=== PATIENT | male | born 1960 | race Caucasian/White ===

== ENCOUNTER 2017-12-01 02:40 | Observation (INO) | payer OTHER ==
[2017-12-01] VITALS (7 sets, daily range): BP systolic 125–140; BP diastolic 64–97; PULSE 54–68; RESP 16–24; TEMP 97.9–98; O2SAT 93–97
[~2017-12-01 02:40] MED LIST: ACYC200O PO; ASPI81TA82 PO; POLY10O RIGHT EYE; TAMS0.4C4
[2017-12-01] MEDS ORDERED: ACETAMINOPHEN 500 MG CPLT PO PRN (04:00)
[2017-12-01] MEDS ORDERED: ONDANSETRON HCL 4 MG/2 ML VIAL IV PUSH PRN (04:00)
[2017-12-01 04:29] LABS: TROPONIN I LESS THAN 0.02 NG/ML (0.02-0.05)
[2017-12-01] MEDS ORDERED: ATROPINE/SCOPOLAM/HYOSCYAM/PB ELIXIR 10 ML CUP PO ONE (08:15)
[2017-12-01] MEDS ORDERED: ALUMINUM/MAGNESIUM/SIMETH 30 ML CUP PO ONE (08:15)
[2017-12-01] MEDS ORDERED: LIDOCAINE VISCOUS 2% SOLN 15 ML UDC PO ONE (08:15)
[2017-12-01] MEDS ORDERED: LISINOPRIL 10 MG TAB PO SCH (09:00)
--- NOTE | 2017-12-01 10:11 | HHI.HP ---
HPI Primary Care Physician No Primary Care Physician Chief Complaint Chest pain History of Present Illness This is a 57-year-old male with history of hypertension that has not taken medications for some time with the complaint of chest discomfort. He states that he had flulike symptoms last week. Over that has since resolved. Then yesterday he developed a" upper abdominal pain." States that he took a Rolaids without improvement. States the discomfort then radiated up into his chest and it is still there. He decided to seek treatment in the [facility], he was transported to the chest pain center for further evaluation. Found nothing to worsen or improve his symptoms. Denies associated shortness of breath, nausea, or diaphoresis. States he has had a cardiac workup in the past. States he had a normal stress test about a year and half ago. 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 Review of Systems General: Patient had a recent flulike symptoms a week ago. States those symptoms have since resolved. Denies recent travel. HEENT: Patient denies headache, sore throat, difficulty swallowing. Cardiovascular: Has the chest discomfort as mentioned above. Denies sensation of heart beating rapidly or irregularly. No syncope. Denies diaphoresis. Respiratory: Denies shortness of breath or inspirational chest discomfort. Denies coughing wheezing or hemoptysis. GI: Points to epigastric region indicate where the discomfort began. Patient denies nausea, vomiting, diarrhea, bloody stools. Musculoskeletal: Patient denies joint pain or edema. Denies calf pain or edema. Neurovascular: Patient denies numbness, tingling, weakness in extremities. Denies headache. Endocrine: Denies polyuria and polydipsia. Hematologic: Denies easy bruising. Skin: Denies rash or itching. Past Family Social History Allergies: Coded Allergies: No Known Allergies (Verified Allergy, Unknown, 11/30/17) Uncoded Allergies: ALL NARCOTICS (Adverse Reaction, Intermediate, 11/30/17) Past Medical History Hypertension. Denies hyperlipidemia, diabetes, and known CAD. Past Surgical History Noncontributory. Reported Medications Reported Meds & Active Scripts Active Polytrim Opth (Polymyxin/Trimethoprim Sulfate) 10 Ml Soln 1 Drop RIGHT EYE Q4 7 Days Reported Aspir-81 (Aspirin) 81 Mg Tab 81 Mg PO DAILY Tamsulosin 0.4 mg (Tamsulosin HCl) 0.4 Mg Cap Zovirax (Acyclovir) 200 Mg/5 Ml Radha 200 Mg PO BID Active Ordered Medications Current Medications Medications (Trade) Dose Ordered Sig/Baljit Route Start Time Stop Time Status Last Admin (Tylenol) 500 mg Q4H PRN PO 12/01/17 04:00 (Zofran Inj) 4 mg Q6H PRN IV PUSH 12/01/17 04:00 (Prinivil) 10 mg DAILY PO 12/01/17 09:00 Family History States his brother secondary to an [place]. Social History States he essentially has been a non-smoker. He smoked a couple years his early 20s. Has a couple beers a day. Denies illicit drugs. 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 Physical Exam Vital Signs Vital Signs Date Time Temp Pulse Resp B/P (MAP) Pulse Ox O2 Delivery O2 Flow Rate FiO2 12/01/17 07:04 98.0 59 18 127/97 (107) 95 12/01/17 06:30 56 12/01/17 04:19 98.0 54 16 140/79 (99) 97 12/01/17 02:57 97.9 55 18 138/78 (98) 95 Physical Exam GENERAL: This is a well-nourished, well-developed patient, in no apparent distress. Patient speaks in clear complete sentences. Patient is pleasant. HEENT: Head is atraumatic and normocephalic. Neck is supple without lymphadenopathy and trachea is midline. No JVD or carotid bruits. CARDIOVASCULAR: Regular rate and rhythm without murmurs, gallops, or rubs. RESPIRATORY: Clear to auscultation. Breath sounds equal bilaterally. No wheezes , rales, or rhonchi. Chest wall is nontender. No use of accessory muscles. GASTROINTESTINAL: There is some epigastric tenderness. Abdomen is nondistended. Abdomen soft. No obvious pulsatile mass or bruit. No CVA tenderness. Strong femoral pulses bilaterally. Normal bowel sounds in all quadrants. MUSCULOSKELETAL: Patient is moving upper and lower extremities freely. No calf tenderness or edema, no Homans sign. Strong pulses in upper and lower extremities. NEUROLOGICAL: Patient is alert and oriented. Cranial nerves 2-12 are grossly intact. No focal deficits and speech is clear. SKIN: No rash and turgor is normal. Laboratory Laboratory Tests Test 12/01/17 03:40 Total Creatine Kinase 167 Creatine Kinase MB 2.7 Troponin I LESS THAN 0.02 Lipase 97 Imaging Chest x-ray read by radiologist as cardiomegaly nothing acute. CTA of the aorta read by radiologist as no dissection or aneurysm. Course EKGs are sinus rhythm without significant ST segment depressions or elevations. Caprini VTE Risk Assessment Caprini VTE Risk Assessment: No/Low Risk (score <= 1) Caprini Risk Assessment Model Point Value = 1 Point Value = 2 Point Value = 3 Point Value = 5 Age 41-60 Minor surgery BMI > 25 kg/m2 Swollen legs Varicose veins or History of unexplained or recurrent spontaneous Oral contraceptives or hormone replacement Sepsis (< 1 month) Serious lung disease, including pneumonia (< 1 month) Abnormal pulmonary function Acute myocardial infarction Congestive heart failure (< 1 month) History of inflammatory bowel disease Medical patient at bed rest Age 61-74 Arthroscopic surgery Major open surgery (> 45 min) Laparoscopic surgery (> 45 min) Malignancy Confined to bed (> 72 hours) Immobilizing plaster cast Central venous access Age >= 75 History of VTE Family history of VTE Factor V Leiden Prothrombin [id number] Lupus anticoagulant Anticardiolipin antibodies Elevated serum homocysteine Heparin-induced thrombocytopenia Other congenital or acquired thrombophilia Stroke (< 1 month) Elective arthroplasty Hip, pelvis, or leg fracture Acute spinal cord injury (< 1 month) Prophylaxis Regimen Total Risk Factor Score Risk Level Prophylaxis Regimen 0-1 Low Early ambulation 2 Moderate Order ONE of the following: *Sequential Compression Device (SCD) *Heparin 5000 units SQ BID 3-4 Higher Order ONE of the following medications: *Heparin 5000 units SQ TID *Enoxaparin/Lovenox 40 mg SQ daily (WT < 150 kg, CrCl > 30 mL/min) *Enoxaparin/Lovenox 30 mg SQ daily (WT < 150 kg, CrCl > 10-29 mL/min) *Enoxaparin/Lovenox 30 mg SQ BID (WT < 150 kg, CrCl > 30 mL/min) AND/OR *Sequential Compression Device (SCD) 5 or more Highest Order ONE of the following medications: *Heparin 5000 units SQ TID (Preferred with Epidurals) *Enoxaparin/Lovenox 40 mg SQ daily (WT < 150 kg, CrCl > 30 mL/min) *Enoxaparin/Lovenox 30 mg SQ daily (WT < 150 kg, CrCl > 10-29 mL/min) *Enoxaparin/Lovenox 30 mg SQ BID (WT < 150 kg, CrCl > 30 mL/min) AND *Sequential Compression Device (SCD) Assessment and Plan Assessment and Plan * Chest pain: Patient has had serial cardiac enzymes and EKGs for ruling out purposes. He was seen by Dr. Radhames Catherine of cardiology in the chest pain center and will undergo a Brandan protocol ETT. He will be discharged home if the stress test is nonischemic with instructions to follow-up with PCP. Return to ED for interval issues. * Hypertension: Patient was placed on lisinopril. Patient is stable at this time. He is agreeable to this plan. Oneil Mccall Dec 01, 2017 10:11
[2017-12-01] MEDS ORDERED: SODIUM CHLOR 0.9% 1000 ML INJ 1,000 ML IV SCH (10:15)
[2017-12-01] MEDS ORDERED: REGADENOSON INJ 0.4 MG/5 ML SYR ONE (13:48)
--- NOTE | 2017-12-01 14:50 | RADRPT ---
EXAM DATE/TIME: 12/01/2017 13:20 [facility] COMPARISON: CTA THORACIC ABDOMINAL AORTA W 3D RECON, November 30, 2017, 23:08. INDICATIONS : Chest pain. Angina. DOSE: 27 mCi Tc99m Myoview at stress. 8.7 mCi Tc99m Myoview at rest. 0.4 mg Lexiscan STRESS SYMPTOMS: None. EJECTION FRACTION: 59% MEDICAL HISTORY : Hypertension. SURGICAL HISTORY : Total knee replacement, right. ENCOUNTER: Initial ACUITY: 1 day PAIN SCALE: 0/10 LOCATION: Substernal chest TECHNIQUE: The patient underwent pharmacologic stress with infusion of prescribed dose. Continuous ECG tracing was monitored during stress. Gated SPECT imaging was performed after stress and conventional SPECT i maging was performed at rest. The examination was performed on a SPECT/CT scanner, both attenuation and non-corrected datasets were reviewed. FINDINGS: DISTRIBUTION: The maximum perfused segment at stress is in the anterolateral wall. PERFUSION STUDY: The pattern of perfusion at stress is within normal limits. GATED STUDY: There is intact wall motion and thickening without hypokinetic or dyskinetic segments. CONCLUSION: 1. Left ventricle perfusion is within normal limits. No fixed or reversible perfusion defect is ident ified. 2. There is normal left ventricle wall motion and ejection fraction. RISK CATEGORY: Low (<1% Annual Mortality Rate) Miguelito Chowdary MD on December 01, 2017 at 14:44 Board Certified Radiologist. This report was verified electronically.
[2017-12-01] MEDS ORDERED: LISI10TA3 PO (15:01)
--- NOTE | 2017-12-01 15:01 | HHI.DCPOC ---
Discharge Care Plan Diagnosis: (1) Chest pain (2) Hypertension Goals to Promote Your Health * To prevent worsening of your condition and complications * To maintain your health at the optimal level Directions to Meet Your Goals Take your medications as prescribed Follow your dietary instruction Follow activity as directed Keep your appointments as scheduled Take your immunizations and boosters as scheduled If your symptoms worsen call your PCP, if no PCP go to Urgent Care Center or Emergency Room Smoking is Dangerous to Your Health. Avoid second hand smoke Call the 24-hour hour crisis hotline for domestic abuse at Oneil Mccall Dec 01, 2017 15:01
--- NOTE | 2017-12-01 16:01 | EKG ---
Date Performed: 12/01/2017 Time Performed: 03:35:13 PTAGE: 57 years EKG: SINUS BRADYCARDIA BORDERLINE ECG NO PREVIOUS TRACING DOCTOR: Radhames Catherine Interpretating Date/Time 12/01/2017 16:00:55
--- NOTE | 2017-12-01 16:06 | TR ---
Date Performed: 12/01/2017 Time Performed: 13:47:27 DOCTOR: Radhames Catherine DRUG LIST: CLINICAL HISTORY: CHEST PAIN REASON FOR TEST: CHEST PAIN REASON FOR ENDING: OBSERVATION: CONCLUSION: Lexiscan stress test was performed under standard four minute protocol. Radionuclid e was injected one minute prior to ending the test. No electrocardiographic abormalities were present to suggest ischemia. Nuclear imaging and interpretation are pending. COMMENTS:
--- NOTE | 2017-12-01 16:09 | TR ---
Date Performed: 12/01/2017 Time Performed: 09:12:58 DOCTOR: Radhames Catherine DRUG LIST: CLINICAL HISTORY: CHEST PAIN REASON FOR TEST: REASON FOR ENDING: OBSERVATION: CONCLUSION: RONNIE PROTOCOL. NO CP. TEST STOPPED AFTER EXCEEDING GOAL HR SECONDARY TO LEG FATIGUE , MILD SOB.Maximum OT=310 % Max HR Achieved=91.0% Maximum YT=485/72 Total Exercise Time=11:01 COMMENTS: ST depression noted at peak of exercise. This likely represents false positive treadmi ll
== END 2017-12-01 17:15 | disposition home or self-care (01) ==
LOC: NEDDLT 02:40 → NEPFCDU 02:50
PROVIDERS: ADMIT Internal Medicine Interventional Cardiology; ATTEND Internal Medicine Interventional Cardiology
DX: R07.9 Chest pain, unspecified (principal); I10 Essential (primary) hypertension; R06.02 Shortness of breath; R94.31 Abnormal electrocardiogram [ECG] [EKG]; R10.10 Upper abdominal pain, unspecified; Z87.891 Personal history of nicotine dependence; Z96.651 Presence of right artificial knee joint
CPT/HCPCS: 78452; 82550; 82552; 83690; 84484; 93005; 93017; 96360; A9502; G0378; J2785; J7030